=== PATIENT | female | born 1970 | race Caucasian/White ===

== ENCOUNTER → 2018-02-19 | Outpatient (CLI) | payer BC ==
[~2018-02-19] MED LIST: ASPI325 PO; AZIT250 PO; CALCAVITD PO; CALCAVITDA PO; CEPH500 PO; CIPR500 PO; CRUTCH3 USE; ERGO400 PO; FLAX PO; HYDACE5 PO; METF500 PO; MULVITMINE PO; NAPR500 PO; NIAC500 PO; ONDA4ODT MM; PRED20 PO; PROGESTERONE CREAM
== END | disposition home or self-care (01) ==
LOC: LAB EV 09:39 → LAB SHORT 09:39
DX: N39.0 Urinary tract infection, site not specified (principal)
CPT/HCPCS: 87077; 87086; 87186

== ENCOUNTER 2018-08-12 06:23 | Emergency (ER) | payer OTHER, BC ==
[~2018-08-12] VITALS: Ht 170.2 cm; Wt 104.3 kg
[2018-08-12] MEDS ORDERED: EZET10 PO (06:52)
== END 2018-08-12 07:53 | disposition home or self-care (01) ==
LOC: ER 06:23
DX: S93.401A Sprain of unspecified ligament of right ankle, initial encounter (principal); X50.9XXA Other and unspecified overexertion or strenuous movements or postures, initial encounter; E78.5 Hyperlipidemia, unspecified; Z88.0 Allergy status to penicillin; Z79.899 Other long term (current) drug therapy
CPT/HCPCS: 73610

== ENCOUNTER → 2019-05-12 | Outpatient (CLI) | payer BC ==
[~2019-05-12] MED LIST changes: +ACET325 PO; +EZET10 PO; +IBUP400 PO
== END | disposition home or self-care (01) ==
LOC: LAB SHORT 18:10 → OLS 18:10
DX: N39.0 Urinary tract infection, site not specified (principal)
CPT/HCPCS: 87086

== ENCOUNTER 2019-10-06 12:28 | Emergency (ER) | payer OTHER, BC ==
[~2019-10-06] VITALS: Ht 170.2 cm; Wt 106.6 kg
[~2019-10-06 12:28] MED LIST changes: +ATOR10 PO; +Aspir 8181 MG PO; +PANT40 PO
[2019-10-06] MEDS ORDERED: BENZ100A PO (14:22)
[2019-10-06] MEDS ORDERED: Norco 10-325 T1 EACH PO (14:22)
[2019-10-06] MEDS ORDERED: ALBU90OI6 INH (14:22)
[2019-10-06] MEDS ORDERED: PROM25 PO (14:22)
== END 2019-10-06 14:32 | disposition home or self-care (01) ==
LOC: ER 12:28
DX: J45.909 Unspecified asthma, uncomplicated (principal); E78.5 Hyperlipidemia, unspecified; Z20.828 Contact with and (suspected) exposure to other viral communicable diseases; Z88.0 Allergy status to penicillin; Z88.1 Allergy status to other antibiotic agents
CPT/HCPCS: 71045; 99283-25; U0002

== ENCOUNTER 2021-05-30 11:33 | Emergency (ER) | payer BC ==
[~2021-05-30] VITALS: Ht 167.6 cm; Wt 92.1 kg
[~2021-05-30 11:33] MED LIST changes: +ALBU90OI6 INH; +BENZ100A PO; +Norco 10-325 T1 EACH PO; +PROM25 PO
[2021-05-30 12:09] LABS: BASOPHILS ABSOLUTE AUTO 0.02 K/mm3 (0.00-0.23); BASOPHILS PERCENT AUTO 0 % (0-2); EOSINOPHILS ABSOLUTE AUTO 0.13 K/mm3 (0.00-0.68); EOSINOPHILS PERCENT AUTO 2 % (0-6); IMMATURE GRAN ABSOLUTE AUTO 0.02 K/mm3 (0.00-0.10); IMMATURE GRAN PERCENT AUTO 0 % (0-1); LYMPHOCYTES ABSOLUTE AUTO 2.13 K/mm3 (0.84-5.20); LYMPHOCYTES PERCENT AUTO 29 % (21-46); MONOCYTES PERCENT AUTO 7 % (4-13); Mean Corpuscular HGB 30.2 pg (26.0-34.0); Mean Corpuscular HGB Conc 34.1 g/dL (31.5-36.5); Mean Corpuscular Volume 89 fL (80-100); Mean Platelet Volume 10.1 fL (9.1-12.4); NEUTROPHILS ABSOLUTE AUTO 4.59 K/mm3 (1.96-9.15); NEUTROPHILS PERCENT AUTO 62 % (41-73); Platelet Count 302 K/mm3 (150-400); RDW Coefficient Variation 12.8 % (11.7-14.2); RDW Standard Deviation 41.8 fL (35.1-46.3); Red Blood Cell Count 4.63 M/mm3 (3.80-5.20); White Blood Cell Count 7.39 K/mm3 (4.00-11.30)
[2021-05-30 12:37] LABS: Alanine Aminotransfer (ALT/SGP 21 U/L (12-78); Albumin, Blood 3.6 g/dL (3.4-5.0); Albumin/Globulin Ratio 0.9 (0.8-1.8); Alk Phos 48 U/L (50-136); Anion Gap 6 mmol/L (6-16); Aspartate Aminotrans (AST/SGOT 18 U/L (12-37); Bilirubin, Total 0.6 mg/dL (0.1-1.0); Blood Urea Nitrogen 15 mg/dL (8-24); Bun/Creatinine Ratio 21.8 (12.0-20.0); CO2, Blood 26 mmol/L (21-32); Calcium, Blood 9.3 mg/dL (8.5-10.1); Chloride, Blood 107 mmol/L (98-108); Creatinine, Blood 0.69 mg/dL (0.40-1.00); Globulin, Blood 3.8 g/dL (2.2-4.0); Glomerular Filtration Rate >60 (60-); Glucose, Blood 121 mg/dL (70-99); Potassium, Blood 4.7 mmol/L (3.5-5.5); Sodium, Blood 139 mmol/L (136-145); Total Protein, Blood 7.4 g/dL (6.4-8.2); Troponin I <0.015 ng/mL (0.000-0.040)
[2021-05-30] MEDS ORDERED: Pepcid40 MG PO (15:49)
== END 2021-05-30 16:15 | disposition home or self-care (01) ==
LOC: ER 11:33
PROVIDERS: Emergency Medicine
DX: R07.89 Other chest pain (principal); E78.5 Hyperlipidemia, unspecified; E11.9 Type 2 diabetes mellitus without complications; Z88.0 Allergy status to penicillin; Z88.8 Allergy status to other drugs, medicaments and biological substances; Z79.899 Other long term (current) drug therapy
CPT/HCPCS: 71045; 80053; 84484; 85025; 93005; 93010; 96374; 99285-25; A9270

== ENCOUNTER → 2021-06-25 | Outpatient (CLI) | payer BC ==
[~2021-06-25] MED LIST changes: +Pepcid40 MG PO
== END | disposition home or self-care (01) ==
LOC: LAB SHORT 12:53
DX: J02.9 Acute pharyngitis, unspecified (principal)
CPT/HCPCS: 87081

== ENCOUNTER 2023-04-25 07:57 | Day surgery (SDC) | payer BC ==
[~2023-04-25] VITALS: Ht 170.2 cm; Wt 103.5 kg
[2023-04-25] MEDS ORDERED: MAGCIT300 (08:23)
[2023-04-25] MEDS ORDERED: COLACE100 MG (08:23)
[2023-04-25] MEDS ORDERED: IBUP400 (08:24)
[2023-04-25 10:12] VITALS: BP 139/82
== END 2023-04-25 10:24 | disposition home or self-care (01) ==
LOC: ORSCSDS 07:57
PROVIDERS: Internal Medicine Gastroenterology
PROC: 0DB78ZX Excision of Stomach, Pylorus, Via Natural or Artificial Opening Endoscopic, Diagnostic (ICD-10-PCS; principal; 2023-04-25 09:30)
PROC: 0DB98ZX Excision of Duodenum, Via Natural or Artificial Opening Endoscopic, Diagnostic (ICD-10-PCS; principal; 2023-04-25 09:30)
PROC: 0DB58ZX Excision of Esophagus, Via Natural or Artificial Opening Endoscopic, Diagnostic (ICD-10-PCS; principal; 2023-04-25 09:30)
PROC: 0D758ZZ Dilation of Esophagus, Via Natural or Artificial Opening Endoscopic (ICD-10-PCS; principal; 2023-04-25 09:30)
DX: R13.10 Dysphagia, unspecified (principal); K22.2 Esophageal obstruction; K20.90 Esophagitis, unspecified without bleeding; K29.70 Gastritis, unspecified, without bleeding
CPT/HCPCS: 82947; 88305; 88342; C1726; J2704; J7120